=== PATIENT | male | born 1965 | race Caucasian/White ===

== ENCOUNTER 2022-04-17 07:03 | Observation (INO) ==
--- NOTE | 2022-04-10 16:04 | Anesthesiology Consultation ---
Date of Service April 10, 2022 Assessment & Plan (1) Encounter for pre-operative examination: - check BMP STAT am DOS. - COVID screening: Per risk assessment consultant on 04/10/2022: Travel screen negative, no known COVID-19 positive contacts or current COVID-19 related symptoms in past 2 weeks. Pt vaccinated. Surgeon arranging preop COVID testing, scheduled 04/15/2022. Awaiting results. Chart Review Chart Review: Acceptable Risk for Surgery and Patient NOT seen in Pre Admission Testing History Surgery Operation Date: 04/17/22 09:05 Proposed Procedures p Left Radical Neck Dissection - Camelia Mace MD Height/Weight Height: 5 ft 9 in Weight: 96.162 kg Allergies Allergy/AdvReac Type Severity Reaction Status Date / Time amoxicillin Allergy urinary Verified 04/10/22 14:54 retention and headaches Medications Home Medications Medication Instructions Recorded Confirmed Last Taken omeprazole 10 mg capsule,delayed 10 mg PO HS 03/30/22 04/10/22 04/02/22 22:00 release hydrocodone 5 mg-acetaminophen 325 1 tab PO Q4H PRN pain #20 tabs 04/03/22 04/10/22 Unknown mg tablet Past Medical History Medical History (Updated 04/10/22 @ 15:55 by Darcie Huntley PA-C) Hiatal hernia History of gout Remote episode History of pneumonia as a child "Walking pneumonia" as child 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) Hx of needle biopsy left neck mass Lump in neck upcoming procedure Lung nodules + scar tissue per CTS Under surveillance 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 No postop issues per anesthesia progress note. History of umbilical hernia repair Hx of tonsillectomy left only Social History Smoking Status: Never smoker tobacco type: smokeless tobacco Do You Dip or Chew Tobacco: Yes (1 can ever 2 days) Hx Alcohol Use: No Hx Substance Use: No substance use type: does not use Lab Results Anesthesia Preop Results Results Anesthesia Widget: WBC 6.52 K/ul (4.8-10.8) 03/30/22 Hgb 13.6 g/dl (14.0-18.0) L 03/30/22 Hct 39.5 % (40.1-51.0) L 03/30/22 Plt 130 K/uL (130-400) 03/30/22 Testing Electrocardiogram Date: 03/30/22 NSR, rate 63 bpm Possible inferior infarct, age undetermined Other Testing PET scan mid thigh to skull base 04/08/22 1. Hypermetabolic 2.8 cm mass within the left parapharyngeal/palatine tissues is suggestive of primary head and neck malignancy. 2. 3.5 cm mass in the adjacent left cervical chain is suggestive of a metastatic lymph node. 3. There are a few additional subcentimeter indeterminate left cervical chain lymph nodes which demonstrate mildly increased metabolic activity. 4. Patchy bilateral groundglass and nodular consolidative opacities, most pronounced in the right lung apex and lingula are suggestive of an infectious or inflammatory pneumonitis. A three month follow-up chest CT is recommended. 5. No definite evidence of thoracic metastatic disease. Soft tissue neck CT 03/26/22 1. There is an ill-defined 2.9 x 2.1 cm left palatine/parapharyngeal soft tissue mass with an adjacent necrotic upper left cervical lymph node measuring 3.9 x 2.6 cm. This is highly suspicious for a head/neck malignancy. 2. Additional findings as described above. Chest CT 03/25/22 Lower neck: A left neck mass is partially visualized on image #1. Thoracic aorta: The thoracic aorta is normal in caliber and demonstrates bovine variant arch anatomy. No dissection is seen. Pulmonary vasculature: The pulmonary trunk is normal in caliber. There are no filling defects identified in the central pulmonary vessels to indicate pulmonary embolus. Note that this examination was not protocoled for evaluation of the pulmonary arteries. Lungs and pleural spaces: There is no airspace consolidation typical for pneumonia or pleural effusion. There are scattered foci of micronodularity throughout both lungs. Linear opacities at the right apex seen on image #109 likely represents pleural-parenchymal scarring. The trachea and central airways are clear. There are scattered pulmonary nodules seen throughout both lungs. A right upper lobe nodule on image #120 measures 9 mm. A 5 mm left apical nodule is seen on image #109, and a 4 mm right upper lobe nodule is seen on image #179. A 4 mm left lower lobe nodule is seen on image #259. Mediastinum: There are numerous calcified mediastinal lymph nodes. No mediastinal lymphadenopathy is seen. Noa: There are calcified hilar lymph nodes. No hilar adenopathy is identified.. Upper abdomen: The spleen is enlarged. An approximately 5 cm subcapsular perfusion defect in the upper pole of the spleen suggests a splenic infarct. Th ere is a small hiatal hernia. The gallbladder is surgically absent. A subcentimeter hypodensity in the dome of the liver on image #268 is pathologically indeterminant, possibly representing a cyst or hemangioma. Skeletal structures: Hemangiomas are noted in the bodies of T7 and T8. No lytic or blastic bony lesions are seen. IMPRESSION: 1. A left neck mass is partially visualized. Neoplasm is the diagnosis of exclusion. Correlation with ultrasound and fine-needle aspiration is recommended. 2. The spleen is enlarged. A subcapsular perfusion defect in the upper pole favors a splenic infarct. Clinical correlation will be essential. 3. Irregular linear airspace opacities at the right apex are not masslike and favor parenchymal scarring. 4. There are additional irregular pulmonary nodules scattered throughout both lungs measuring up to 9 mm. These are pathologically indeterminant and a 3 month follow-up chest CT is recommended to reevaluate these findings. 5. There are foci of micronodularity throughout both lungs with numerous calcified mediastinal and hilar lymph nodes. The appearance is nonspecific and could be seen with remote granulomatous infection, sarcoidosis, or possibly a pneumoconiosis. Clinical correlation will be essential. 6. There is no airspace consolidation typical for pneumonia or pleural effusion. 7. Additional findings as above.
--- NOTE | 2022-04-16 08:06 | History & Physical Report ---
Date of Service April 16, 2022 Assessment & Plan (1) Metastatic squamous cell carcinoma: Plan: Left side functional neck dissection (2) Squamous cell carcinoma of left tonsil: History of Present Illness Chief Complaint: Squamous cell carcinoma left tonsil Primary Care Provider: Talya Santoro DO 56-year-old gentleman with squamous cell carcinoma left tonsil, 3 cm node left neck Allergies Allergy/AdvReac Type Severity Reaction Status Date / Time amoxicillin Allergy urinary Verified 04/13/22 07:50 retention and headaches Home Medications Medication Instructions Recorded Confirmed Type omeprazole 10 mg capsule,delayed 10 mg PO HS 03/30/22 04/13/22 History release Past Med/Surg History Medical History Hiatal hernia History of gout Remote episode History of pneumonia as a child "Walking pneumonia" as child 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 No postop issues per anesthesia progress note. History of umbilical hernia repair Hx of tonsillectomy left only-04/03/22 Family History Mother Lung cancer smoker Brain cancer Lung disease Father Lung disease Lung cancer smoker Other No family history of adverse response to anesthesia No family history of bleeding disorder Social History Smoking Status: Never smoker Second Hand Exposure: No; Hx Alcohol Use: No Hx Substance Use: No Preferred Language: Finnish Communication Ability: Effective Dental Lab Technician Required: No Beliefs That Will Affect Care: None marital status: Current Living Situation: Significant Other current occupational status: employed current occupation: concrete laborer at [employer] Feels Safe at Home: Yes Childhood Exposure to Second-Hand Smoke: Yes Dental Care, Regularly: Yes Sunscreen Use: Yes Assistive Devices: Denture - Upper Physical Exam Constitutional: WD/WN, vitals as above Eyes: PERRL, conjunctivae normal, anicteric sclerae ENMT: external ear and nose normal, oropharynx normal Mouth: + oropharynx abnormality (Left tonsillar fossa healing) Throat: + tonsils absent (Left side) Neck: 3 cm firm fixed left level 2 node Respiratory: normal respiratory effort, lungs clear to auscultation Cardiovascular: RRR, no murmur, no edema PG Care Time/CCT Total # of Minutes Spent Total Time Spent with Patient: Total time spent is greater than 50% in coordination of care (as documented) at patient's floor/unit and/or counseling patient: Coding Level of Care Code None Diagnoses Metastatic squamous cell carcinoma Squamous cell carcinoma of left tonsil C09.9
[~2022-04-17 07:03] MED LIST: LR 15ML/HR IV SCH
[2022-04-17] MEDS ORDERED: HYDROmorphone INJ 1 MG/ML SYRINGE IV PRN (07:44)
[2022-04-17] MEDS ORDERED: ePHEDrine sulfate 50 MG/ML AMP IV PRN (07:44)
[2022-04-17] MEDS ORDERED: ONDANSETRON INJ 2 MG/ML 2 ML VIAL IV PRN ×2 (07:44→12:40)
[2022-04-17] MEDS ORDERED: ATROPINE SULFATE 0.1 MG/ML 10ML SYR IV PRN (07:44)
[2022-04-17] MEDS ORDERED: fentaNYL citrate 100 MCG/2 ML VIAL IV PRN (07:44)
[2022-04-17] MEDS ORDERED: MIDAZOLAM HCL 1 MG/ML 2ML VIAL ONE (07:46)
[2022-04-17] MEDS ORDERED: DEXAMETHASONE SOD INJ 4 MG/ML VIAL ONE (07:46)
[2022-04-17] MEDS ORDERED: fentaNYL citrate 100 MCG/2 ML VIAL ONE (07:46)
[2022-04-17] MEDS ORDERED: ONDANSETRON INJ 2 MG/ML 2 ML VIAL ONE ×2 (07:46→09:16)
[2022-04-17] MEDS ORDERED: PROPOFOL IV EMULSION 10 MG/ML 20 ML VIAL IV ONE (07:46)
[2022-04-17] MEDS ORDERED: LIDOCAINE 2% 20 MG/ML 5 ML SYR IV ONE (07:48)
[2022-04-17] MEDS ORDERED: LARYING-O-JET KIT (LTA) ONE (07:48)
[2022-04-17] MEDS ORDERED: ROCURONIUM BROMIDE 10 MG/ML 5 ML VIAL IV ONE ×3 (07:48→09:16)
[2022-04-17 08:29] LABS: BUN Creatinine Ratio 10.8 (10-20); Calcium 8.9 mg/dl (8.5-10.1); Creatinine Clr Calc Pharmacy 89.5 ml/min; Est GFR (African American) 93.5 ml/min; Est GFR (Non-African American) 80.6 ml/min; Potassium 4.1 mmol/L (3.5-5.1)
[2022-04-17] MEDS ORDERED: LIDOCAINE/EPINEPHRINE 1.7 ML CTR ONE (08:32)
[2022-04-17] MEDS ORDERED: BACITRACIN OINT 15 GM TUBE ONE (08:32)
[2022-04-17] MEDS ORDERED: ceFAZolin 2,000 MG/15 ML IV PUSH IV ONE (08:33)
[2022-04-17] MEDS ORDERED: ceFAZolin 2000MG 2,000 MG/15 ML SYR IV ONE ×2 (08:34→16:00)
--- NOTE | 2022-04-17 08:35 | History & Physical Bridge Note ---
Date of Service April 17, 2022 History & Physical Bridge Note I have examined the patient, reviewed the History & Physical and in the interval since the performance of the History & Physical I have noted the following changes of clinical significance: no changes noted
[2022-04-17] MEDS ORDERED: LIDOCAINE 2%/EPINEPHRINE 1:100,000 20ML ONE (08:45)
[2022-04-17] MEDS ORDERED: HYDROmorphone INJ 1 MG/ML SYRINGE ONE ×2 (09:03→10:38)
[2022-04-17] MEDS ORDERED: ceFAZolin 330 MG/ML 1 GM VIAL ONE (12:17)
[2022-04-17] MEDS ORDERED: MoRPHine SULFATE 4 MG/ML 1 ML CARP\\VIAL IM PRN (12:40)
[2022-04-17] MEDS ORDERED: oxyCODONE/ACETAMINOPHEN 5mg/325mg TAB PO PRN (12:40)
--- NOTE | 2022-04-17 12:55 | Operative Report ---
PG Post Operative Report Pre & Post Diagnosis Operation Date: 04/17/22 09:05 Pre-Op Diagnosis: Squamous cell carcinoma of left tonsil and left neck Post-Op Diagnosis: Squamous cell carcinoma of left tonsil and left neck I identified the patient and participated in the time-out.: Yes Procedure Operation Date: 04/17/22 09:05 Actual Procedures p Left Radical Neck Dissection(Left) - Camelia Mace MD Surgeon Camelia Mace MD Software Educator Huma Estimated Blood Loss 200 Findings Consistent with Post-Op Diagnosis hard fixed left high jugular node Specimens Left functional neck dissection contents Anesthesia Type General Complications None Description of Procedure He was brought to the operating room, properly identified, prepped and draped in the usual sterile manner after general endotracheal anesthesia. Neck was hyperextended with a shoulder roll and rotated to the right for left neck dissection. The incision was a submandibular incision following the skin crease extending anteriorly to the submental area and then extended posteriorly to expose the mastoid tip. Per: Follow the sternocleidomastoid inferiorly to the clavicle. Incision line was marked and then injected with 2% Xylocaine with 1 20,000 strength epinephrine. Incision was made using the #10 blade followed by the #15 blade through the skin subcutaneous and platysma layer. Platysmal flaps were elevated superiorly and then anteriorly and posteriorly exposing the neck contents. Bleeders were controlled using the Bovie. The 3 cm node posterior superior was hard and fixed. Dissection was started inferiorly by splitting the fascia over the sternocleidomastoid and then retracting the sternocleidomastoid posteriorly using the Metzenbaum scissors and the harmonic scalpel inferiorly the omohyoid muscle was identified. The scalene fat pad was dissected superiorly along with the fascia and then the dissection followed the omohyoid anteriorly to the strap muscles. In this manner the en bloc 3 and 4 nodes were dissected free. Dr. Finn was present for the entire procedure and help dissect out the jugular vein and the carotid vessels. Dissection was continued at the level 1 node area dissecting out the left submandibular gland splitting with facial vein and then retracting the vein superiorly with the Suarez Dale maneuver to protect the marginal mandibular nerve. The submandibular gland was dissected free and retracted posteriorly and inferiorly. Facial vein had to be clamped divided and ligated using silk ties. Facial artery was also encountered clamped divided and tied with 3-0 silk suture ligatures. At this point the tumor was found to be stuck to the jugular vein. Using blunt and sharp dissection the posterior portion of the sternocleidomastoid muscle superiorly was resected along with the tumor and then dissection was further extended anteriorly along the mandible dissecting the adhesions to the angle of the mandible and then following these adhesions anteriorly to the submandibular gland. Further dissection was continued posteriorly along the SCM and along the jugular vein identifying the hypoglossal nerve underneath the digastric and also the spinal accessory nerve posteriorly and also with internal and external carotid arteries. In this manner the tumor was dissected free from the carotid and from the jugular vein and from the digastric muscle preserving the spinal accessory nerve and the hypoglossal nerve. Superiorly the tumor was adherent to the hypoglossal nerve which had to be dissected free using blunt and sharp dissection with hemostat and the scissors and then resecting the tumor away from the hypoglossal nerve preserving. Superiorly dissection continued to the styloid process x-ray pending to the superior border of the tumor and then the tumor was resected and freed and sent for pathology. The wound was irrigated with copious amounts of saline. Incision was closed with interrupted 3-0 Vicryl sutures on the platysma layer, interrupted 3-0 Vicryl sutures on the subcutaneous layer and mary on the skin. Gall[place] drain was placed exiting inferiorly in the neck and sewn in place with silk suture. Blood pressure dressing was placed. He tolerated procedure well and was taken recovery area in satisfactory condition. I attest to the content of the Intraoperative Record and any orders documented therein. Any exceptions are noted below.
--- NOTE | 2022-04-17 14:37 | Anesthesiology Progress Note ---
Date of Service April 17, 2022 Anesthesia Post Procedure Vital Signs Vital Signs: Temp Pulse Pulse Pulse Resp BP Pulse Ox 04/17/22 14:15 37.1 C 79 18 139/61 95 04/17/22 13:42 36.9 C 80 16 139/61 96 04/17/22 13:20 36.7 C 77 16 125/72 95 04/17/22 13:10 84 12 134/76 94 04/17/22 13:00 83 16 135/79 98 04/17/22 12:50 85 16 130/80 98 04/17/22 12:41 36.8 C 90 15 128/78 98 04/17/22 07:52 36.8 C 66 20 129/74 99 O2 Del Method O2 Flow Rate 04/17/22 14:15 Room Air 04/17/22 13:42 Room Air 04/17/22 13:20 Room Air 04/17/22 13:10 Room Air 04/17/22 13:00 Oxymask 6 04/17/22 12:50 Oxymask 6 04/17/22 12:41 Oxymask 6 04/17/22 07:52 Room Air Pain Intensity Throat: Pain Intensity: 2 Transfer of Care Handoff Completed per policy Notes Mental Status: alert / awake / arousable and participated in evaluation Patient Amnestic to Procedure: Yes Nausea / Vomiting: adequately controlled Pain: adequately controlled Airway Patency, RR, SpO2: stable & adequate BP & HR: stable & adequate Hydration State: stable & adequate Anesthetic Complications: no major complications apparent
[2022-04-17] MEDS: LACTATED RINGER'S 1,000 ML IV SCH ×2 (19:04→23:17)
--- NOTE | 2022-04-18 08:51 | Discharge Summary ---
Date of Service April 18, 2022 Admission HPI Per Admitting Provider 56-year-old gentleman with squamous cell carcinoma left tonsil, 3 cm node left neck Admission Exam (Per Admitting) Constitutional WD/WN, vitals as above Eyes PERRL, conjunctivae normal, anicteric sclerae ENMT external ear and nose normal, oropharynx normal Mouth: + oropharynx abnormality (Left tonsillar fossa healing) Throat: + tonsils absent (Left side) Respiratory normal respiratory effort, lungs clear to auscultation Cardiovascular RRR, no murmur, no edema Discharge Data Procedures Performed Operation Date: 04/17/22 09:05 Actual Procedures p Left Radical Neck Dissection(Left) - Camelia Mace MD Hospital Course (1) Metastatic squamous cell carcinoma: S/P left functional neck dissection, did well postop, discharge to home, return tooffice Wednesday for recheek (2) Squamous cell carcinoma of left tonsil: will need chemo/XRT, will arrange consults
== END 2022-04-18 12:30 | disposition home or self-care (01) ==
LOC: ASU 07:03 → 3W 07:03